=== PATIENT | male | born 1975 | race Caucasian/White ===

== ENCOUNTER 2018-11-20 20:24 | Observation (INO) | payer OTHER ==
--- NOTE | 2018-11-20 21:19 | C.PDOC ---
History Of Present Illness Patient presents to the ED c/o chest pain and SOB that has been on and off for the past 3 days. 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 Patient saw his PMD today and was sent to the ED for evaluation. Patient also c/o mild dizziness. Patient denies fever, chills, headache, visual changes, rash, palpitations, recent travel, sick contacts. Time Seen by Provider: 11/20/18 21:19 Chief Complaint (Nursing): Chest Pain History Per: Patient History/Exam Limitations: no limitations Onset/Duration Of Symptoms: Days (3), Intermittent Episodes Current Symptoms Are (Timing): Still Present Quality: "Pain" Recent travel outside of the [place]: No Additional History Per: Patient Past Medical History Reviewed: Historical Data, Nursing Documentation, Vital Signs Vital Signs: Last Vital Signs Temp 98.9 F 11/20/18 20:35 Pulse 65 11/20/18 20:35 Resp 20 11/20/18 20:35 BP 112/78 11/20/18 20:35 Pulse Ox 99 11/20/18 20:35 Primary Care Provider: Non [facility] Provider, - Medical History PMH: No Chronic Diseases Surgical History: No Surg Hx Family History: States: Unknown Family Hx - Social History Hx Alcohol Use: Yes Hx Substance Use: No - Immunization History Hx Tetanus Toxoid Vaccination: No Hx Influenza Vaccination: No Hx Pneumococcal Vaccination: No Review Of Systems Constitutional: Negative for: Fever, Chills Eyes: Negative for: Vision Change Cardiovascular: Positive for: Chest Pain. Negative for: Palpitations Respiratory: Positive for: Shortness of Breath. Negative for: Cough Gastrointestinal: Negative for: Nausea, Vomiting, Abdominal Pain Skin: Negative for: Rash Neurological: Positive for: Dizziness. Negative for: Weakness, Headache Physical Exam - Physical Exam Appears: Non-toxic, No Acute Distress Skin: Warm, Dry Head: Normacephalic Eye(s): bilateral: Normal Inspection, PERRL, EOMI Neck: Supple Chest: Symmetrical Cardiovascular: Rhythm Regular Respiratory: No Rales, Rhonchi (scattered at the bases), No Wheezing Gastrointestinal/Abdominal: Soft, No Tenderness, No Distention Extremity: Bilateral: Atraumatic, Normal Color And Temperature, Normal ROM Neurological/Psych: Oriented x3, Normal Speech, Normal Cognition, Other (no nystagmus) Gait: Steady Other Neurological Findings: Facial Palsy (left side since 2013, not new) ED Course And Treatment - Laboratory Results Result Diagrams: 11/20/18 22:02 11/20/18 21:32 ECG: Interpreted By Me, Viewed By Me ECG Rhythm: Sinus Rhythm (68), Nonspecific Changes O2 Sat by Pulse Oximetry: 99 (ON RA) Pulse Ox Interpretation: Normal - Radiology CXR: Interpreted by Me, Viewed By Me Progress Note: Plan: - CTA head. - EKG. - LAbs. - CXR. - Aspirin 325 mg PO Disposition Discussed With Dr.: Juan Pena Comment: acepted the pt on his service and took over the care at Doctor Will See Patient In The: Hospital Counseled Patient/Family Regarding: Studies Performed, Diagnosis - Disposition Disposition: HOSPITALIZED Disposition Time: 21:19 Condition: FAIR - Clinical Impression Clinical Impression: Chest pain - Scribe Statement The provider has reviewed the documentation as recorded by the Scribe Grady Smalls All medical record entries made by the Scribe were at my direction and personally dictated by me. I have reviewed the chart and agree that the record accurately reflects my personal performance of the history, physical exam, medical decision making, and the department course for this patient. I have also personally directed, reviewed, and agree with the discharge instructions and disposition. Decision To Admit - Pt Status Changed To: Hospital Disposition Of: Observation - . Bed Request Type: Telemetry Admitting Physician: Juan Pena Patient Diagnosis: Chest pain
[2018-11-20] MEDS ORDERED: Aspirin 325 mg EC Tablets PO STA (21:20)
[2018-11-20] MEDS ORDERED: Aspirin 325 mg EC Tablets PO ONE (21:37)
[2018-11-20 21:47] LABS: INR 1.3; PROTHROMBIN TIME 13.8 SECONDS (9.7-12.2)
[2018-11-20 21:51] LABS: ALB/GLOB RATIO 1.3 (1.0-2.1); ALBUMIN 4.7 g/dL (3.5-5.0); ALT/SGPT 44 U/L (21-72); AST/SGOT 28 U/L (17-59); BLOOD UREA NITROGEN 14 mg/dL (9-20); CALCIUM 10.1 mg/dl (8.6-10.4); GFR NON-AFRICAN AMERICAN > 60; LIPASE 163 U/L (23-300)
[2018-11-20 22:04] LABS: B-TYPE NATRIURETIC PEPTIDE < 11.1 pg/mL (0-450)
[2018-11-20 22:07] LABS: BASO # 0.1 K/uL (0.0-0.2); BASO % 0.9 % (0.0-2.0); EOS # 0.2 K/uL (0.0-0.7); EOS % 2.2 % (0.0-4.0); HEMOGLOBIN 16.7 g/dL (12.0-18.0); LYMPH # 2.3 K/uL (1.0-4.3); MEAN CORPUSCULAR HEMOGLOBIN 27.3 pg (27.0-31.0); MEAN CORPUSCULAR HGB CONC 34.1 g/dL (33.0-37.0); MEAN PLATELET VOLUME 9.4 fL (7.2-11.7); MONO # 0.5 K/uL (0.0-0.8); MONO % 5.8 % (0.0-10.0); NEUT # 5.6 K/uL (1.8-7.0); NEUT % 65.1 % (50.0-75.0); NRBC % 0.3 % (0.0-2.0); RBC 6.12 Mil/uL (4.40-5.90); RED CELL DISTRIBUTION WIDTH 14.4 % (11.5-14.5); WHITE BLOOD COUNT 8.7 K/uL (4.8-10.8)
[2018-11-20] MEDS ORDERED: Iodixanol 320 MG/ML 100 ML BOTTLE IV ONE (22:20)
[2018-11-21 07:41] LABS: HDL CHOLESTEROL 37 mg/dL (30-70)
--- NOTE | 2018-11-21 07:49 | CT ---
CT chest pulmonary angiogram HISTORY: Shortness of breath. COMPARISON: None. Technique: CT chest pulmonary angiogram was performed utilizing multiple contiguous axial images with use of intravenous contrast. Subsequently, sagittal and coronal reformatted images were obtained. Sagittal and coronal MIPS reformatted images were obtained. This CT exam was performed using one or more of the following dose reduction techniques: Automated exposure control, adjustment of the mA and/or kV according to patient size, and/or use of iterative reconstruction technique. Findings: No evidence of acute pulmonary embolism. No evidence of acute aortic dissection. Prominence of the main pulmonary artery measuring 3.6 centimeters which may indicate some pulmonary arterial hypertension. Clinical correlation. Right lung: Mild atelectasis at the right lung base. Left lung: Minimal lingular atelectasis. Trachea thru central airways are patent. No significant axillary adenopathy. Heterogeneous thyroid. 1 centimeter left paratracheal lymph node. No significant hilar adenopathy. No pleural or pericardial effusion. Prominent liver with fatty infiltration. Small hiatal hernia. Degenerative changes in the spine. Impression: 1. No evidence of acute pulmonary embolism. 2. Prominence of the main pulmonary artery which may indicate underlying pulmonary arterial hypertension. Clinical correlation. 3. Prominent liver with fatty infiltration. A preliminary report was generated at 11:54 p.m. on 11/20/[address] Shawn Jackson from [employer]
[2018-11-21 07:53] LABS: CK-MB < 0.22 ng/mL (0.0-3.38)
[2018-11-21 08:15] LABS: LDL CHOLESTEROL 175 mg/dL (0-129)
--- NOTE | 2018-11-21 08:23 | RAD ---
Chest x-ray single frontal view HISTORY: Chest pain. Comparison: None available. Findings: Mild venous congestion. Right hilar prominence. Heart size within normal limits. Impression: Mild venous congestion. Right hilar prominence.
[2018-11-21] MEDS ORDERED: Potassium Chloride 20 mEq ER Tab PO ONE (10:00)
[2018-11-21 14:27] LABS: CK-MB < 0.22 ng/mL (0.0-3.38)
[2018-11-21 16:55] VITALS: RESP 20
--- NOTE | 2018-11-21 17:08 | CP.PCM.HP ---
Present on Admission - Present on Admission Any Indicators Present on Admission: No Past Patient History - Past Social History Smoking Status: Former Smoker - NEUROLOGICAL Other/Comment: bells palsy - PSYCHIATRIC Hx Substance Use: No Meds Allergies/Adverse Reactions: Allergies Allergy/AdvReac Type Severity Reaction Status Date / Time No Known Allergies Allergy Unverified 11/20/18 20:41 Results - Vital Signs Recent Vital Signs: Last Vital Signs Temp 97.9 F 11/21/18 16:54 Pulse 86 11/21/18 16:54 Resp 20 11/21/18 16:54 BP 111/73 11/21/18 16:54 Pulse Ox 99 11/21/18 16:54 - Labs Result Diagrams: 11/20/18 22:02 11/20/18 21:32 Labs: Laboratory Results - last 24 hr 11/20/18 11/20/18 11/20/18 21:32 21:32 21:41 WBC RBC Hgb Hct MCV MCH MCHC RDW Plt Count MPV Neut % (Auto) Lymph % (Auto) Burt % (Auto) Eos % (Auto) Baso % (Auto) Neut # (Auto) Lymph # (Auto) Burt # (Auto) Eos # (Auto) Baso # (Auto) PT 13.8 H INR 1.3 APTT 36.0 H D-Dimer, Quantitative < 200 Sodium 139 Potassium 3.5 L Chloride 100 Carbon Dioxide 25 Anion Gap 18 BUN 14 Creatinine 1.0 Est GFR ( Amer) > 60 Est GFR (Non-Af Amer) > 60 POC Glucose (mg/dL) Random Glucose 114 H Calcium 10.1 Total Bilirubin 1.5 H AST 28 ALT 44 Alkaline Phosphatase 105 Total Creatine Kinase CK-MB (Mass) Troponin I < 0.0120 NT-Pro-B Natriuret Pep < 11.1 Total Protein 8.1 Albumin 4.7 Globulin 3.5 Albumin/Globulin Ratio 1.3 Triglycerides Cholesterol LDL Cholesterol Direct HDL Cholesterol Lipase 163 11/20/18 11/21/18 11/21/18 22:02 07:16 11:38 WBC 8.7 RBC 6.12 H Hgb 16.7 Hct 49.0 MCV 80.0 MCH 27.3 MCHC 34.1 RDW 14.4 Plt Count 223 MPV 9.4 Neut % (Auto) 65.1 Lymph % (Auto) 26.0 Burt % (Auto) 5.8 Eos % (Auto) 2.2 Baso % (Auto) 0.9 Neut # (Auto) 5.6 Lymph # (Auto) 2.3 Burt # (Auto) 0.5 Eos # (Auto) 0.2 Baso # (Auto) 0.1 PT INR APTT D-Dimer, Quantitative Sodium Potassium Chloride Carbon Dioxide Anion Gap BUN Creatinine Est GFR ( Amer) Est GFR (Non-Af Amer) POC Glucose (mg/dL) 200 H Random Glucose Calcium Total Bilirubin AST ALT Alkaline Phosphatase Total Creatine Kinase 84 CK-MB (Mass) < 0.22 Troponin I < 0.0120 NT-Pro-B Natriuret Pep Total Protein Albumin Globulin Albumin/Globulin Ratio Triglycerides 289 H Cholesterol 228 H LDL Cholesterol Direct 175 H HDL Cholesterol 37 Lipase 11/21/18 13:55 WBC RBC Hgb Hct MCV MCH MCHC RDW Plt Count MPV Neut % (Auto) Lymph % (Auto) Burt % (Auto) Eos % (Auto) Baso % (Auto) Neut # (Auto) Lymph # (Auto) Burt # (Auto) Eos # (Auto) Baso # (Auto) PT INR APTT D-Dimer, Quantitative Sodium Potassium Chloride Carbon Dioxide Anion Gap BUN Creatinine Est GFR ( Amer) Est GFR (Non-Af Amer) POC Glucose (mg/dL) Random Glucose Calcium Total Bilirubin AST ALT Alkaline Phosphatase Total Creatine Kinase 95 CK-MB (Mass) < 0.22 Troponin I < 0.0120 NT-Pro-B Natriuret Pep Total Protein Albumin Globulin Albumin/Globulin Ratio Triglycerides Cholesterol LDL Cholesterol Direct HDL Cholesterol Lipase
--- NOTE | 2018-11-22 06:01 | HP ---
CHIEF COMPLAINT: Chest pain. HISTORY OF PRESENT ILLNESS: This is a 43-year-old French male with history of obesity, hyperlipidemia with borderline sugar, not a known diabetic, a nonsmoker. 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 Along with that, he had dizziness. He denies any diaphoresis. No cough. No sore throat. No runny nose. He denies any history of dyspepsia, nausea, vomiting. He denies any history of polyuria, polydipsia, polyphagia. He denies any history of hematuria or pyuria. He denies any history of sneezing, itchy eyes, itchy nose. There is no history of trauma, fall, loss of consciousness. There is no history of seizures. There is no history of tingling, numbness, paresthesias. There is no history of sneezing. There is no history of joint pain or hip pain. ALLERGIES: UNKNOWN. CURRENT MEDICATIONS: The patient is not on any medication. PAST MEDICAL HISTORY: Obesity, hyperlipidemia. PHYSICAL EXAMINATION: GENERAL: A middle-aged male in no acute distress. VITAL SIGNS: Blood pressure 111/73, pulse 86, respiratory rate 20, temperature 97.9. SKIN: No rashes, no bruises, no purpura. HEENT: Atraumatic, normocephalic. Negative pallor. Negative jaundice. Extraocular movements are intact. NECK: Supple. No JVD. No lymph node. No thyromegaly. No carotid bruits. CHEST WALL: Bilateral symmetrical expansion. LUNGS: Clear. CARDIOVASCULAR SYSTEM: S1 and S2. Regular. No heave. No thrill. ABDOMEN: Soft, nontender. Bowel sounds are positive. RECTAL: No masses, no bleed. EXTREMITIES: No clubbing, cyanosis, or edema. CENTRAL NERVOUS SYSTEM: Awake, alert, and oriented x3. Cranial nerves II through XII are normal. Power 5/5 x4. Plantars are downgoing. ASSESSMENT: 1. Chest pain, rule out myocardial infarction. 2. Hyperlipidemia. PLAN: Admit. Detailed orders are written. The patient . Juan Pena MD
--- NOTE | 2018-11-22 06:15 | CON ---
DATE: 11/21/2018 HISTORY OF PRESENT ILLNESS: The patient is a 43-year-old [place] male, who recently arrived from [place] this past May from the [facility], has a history of hypertension, on an antihypertensive agent from [place], has not seen a doctor yet, presented because of chest pain that he as annoying feeling. Denies any diaphoresis or shortness of breath. The patient is known to have history of hyperlipidemia, but is not taking any antihyperlipidemic agent. SOCIAL HISTORY: The patient is a nonsmoker. MEDICATIONS: Current medications are Crestor 5 mg at bedtime, aspirin 81 mg once a day, subcutaneous heparin 5000 units every 8 hours. REVIEW OF SYSTEMS: No nausea or vomiting. No fever or chills. PAST MEDICAL HISTORY: Hypertension, hyperlipidemia. PHYSICAL EXAMINATION: GENERAL: The patient is a middle-aged male, who does not appear to be in any distress. VITAL SIGNS: Blood pressure 97/60, heart rate 69, temperature 97.7, and respirations 18. HEENT: Head normocephalic. NECK: No JVD. CHEST: Clear. HEART: S1 and S2 regular. ABDOMEN: Soft. EXTREMITIES: No edema and no calf tenderness. LABORATORY DATA: Sodium 139, potassium 3.5, chloride 100, CO2 of 25, glucose 114, BUN 14, and creatinine 1. Lipid profile; triglycerides 289, total cholesterol 128, LDL cholesterol 175, elevated. Lipase level is within normal limits. INR is 1.3. PTT is 36. D-Dimer is within normal limits. CBC: WBC is 8.7, hemoglobin is 16.7, hematocrit , platelet count 123,000. EKG revealed normal sinus rhythm at the rate of 68. Two sets of troponins are negative. CT angio of the chest, no evidence of pulmonary embolus. Prominence of the main pulmonary artery, which may include underlying pulmonary hypertension, clinical correlation, prominent liver with fatty infiltration. ASSESSMENT: 1. Chest pain, myocardial infarction is ruled out. 2. Hypertension. 3. Hyperlipidemia. 4. Hypokalemia. 5. Questionable pulmonary hypertension. 6. Fatty liver. RECOMMENDATIONS: Continue Crestor 5 mg once a day, aspirin 81 mg once a day. The patient did receive potassium chloride replacement of 20 mEq orally today. I would review echocardiographic study performed today. Follow up BMP in the a.m. The patient was scheduled for Myoview stress test in a.. Eze Holt MD
--- NOTE | 2018-11-22 06:17 | CP.PCM.PN ---
Subjective - Date & Time of Evaluation Date of Evaluation: 11/22/18 Time of Evaluation: 05:20 - Subjective Subjective: dict Objective - Vital Signs/Intake and Output Vital Signs (last 24 hours): Temp Pulse Resp BP Pulse Ox 99 F 77 20 122/83 99 11/21/18 23:20 11/21/18 23:20 11/21/18 23:20 11/21/18 23:20 11/22/18 04:00 - Medications Medications: Current Medications Aspirin (Ecotrin) 81 mg PO DAILY [facility] Last Admin: 11/21/18 09:46 Dose: 81 mg Heparin Sodium (Porcine) (Heparin) 5,000 units SC Q8 [facility] Last Admin: 11/22/18 05:08 Dose: Not Given Rosuvastatin Calcium (Crestor) 5 mg PO HS [facility] Last Admin: 11/21/18 21:26 Dose: 5 mg - Labs Labs: 11/20/18 22:02 11/20/18 21:32 PT 13.8 SECONDS (9.7-12.2) H 11/20/18 21:32 INR 1.3 11/20/18 21:32 APTT 36.0 SECONDS (21-34) H 11/20/18 21:32
[2018-11-22 08:03] LABS: CK-MB < 0.22 ng/mL (0.0-3.38)
[2018-11-22 08:30] VITALS: TEMP 97.8; O2SAT 100
--- NOTE | 2018-11-22 10:11 | PN ---
DATE: 11/22/2018 SUBJECTIVE: The patient is off stress test today. He is afebrile. No chest pain. Cardiac enzymes x3 are negative. PHYSICAL EXAMINATION: VITAL SIGNS: Blood pressure 122/83, pulse 77, respiratory rate 20, temperature 99. LUNGS: Clear. CARDIOVASCULAR SYSTEM: S1 and S2. Regular. ABDOMEN: Soft. ASSESSMENT: Chest pain, rule out myocardial infarction. PLAN: Stress test. Monitor patient. Juan Pena MD
[2018-11-22 13:17] LABS: BLOOD UREA NITROGEN 12 mg/dL (9-20); CALCIUM 9.4 mg/dl (8.6-10.4); GFR NON-AFRICAN AMERICAN > 60
[2018-11-22 15:44] VITALS: BP 106/70; PULSE 89
--- NOTE | 2018-11-22 15:44 | PN ---
DATE: 11/22/2018 SUBJECTIVE: The patient denies chest pain. No reported ventricular arrhythmia. PHYSICAL EXAMINATION: VITAL SIGNS: Blood pressure 117/78, heart rate 74, temperature 97.8, respirations 20. HEENT: Normocephalic. NECK: No JVD. CHEST: Clear. HEART: Sounds are regular. EXTREMITIES: No edema. LABORATORY DATA: A total 4 sets of troponins are negative. The patient underwent Myoview stress test. The treadmill part was negative for ischemia and the Myoview images have not been acquired so far. ASSESSMENT: 1. Chest pain, myocardial infarction is ruled out. 2. Hyperlipidemia. 3. Obesity. 4. Hypertension. 5. Hypokalemia. RECOMMENDATIONS: Continue Crestor 5 mg once a day, aspirin 81 mg once a day, heparin 5000 units every 8 hours. Obtain a followup BMP today and I will follow the Myoview imaging when it is completed this afternoon. Eze Holt MD
--- NOTE | 2018-11-22 16:01 | CARD ---
APPROVED REPORT Date of service: 11/22/2018 Protocol: TYRA Test Type: NUCLEAR STRESS Test Indications: CHEST PAIN Medical History: CHEST PAIN Target HR: 179 bpm Resting ECG: normal Resting Heart Rate: 84 bpm Resting Blood Pressure: 132/80mmHg submaximum (85%): 152 bpm TEST SUMMARY PRETESTWARM-UP18:[id number]/80.0. EXERCISESTAGE 103:[id number]/80.0. EXERCISESTAGE 203:[id number]/80.0. EXERCISESTAGE 300:[id number]/80.0. [id number]/80.0. POST EXERCISE Reason for Termination: Target heart rate achieved Target HR: No Max HR: 169 bpm 94% of Maximum Predicted HR: 179 bpm Exercise duration: 06:31 min:sec, 3 Stage Exercise capacity: 8.5METs Max Blood Pressure: 150/80mmHg Blood Pressure response to exercise: normal resting BP - appropriate response Heart Rate response to exercise: appropriate Chest Pain: No, none Angina index: 0 Arrhythmia: No, none ST Change: No, none Deviation: 0 mm EXAM: Myocardial Perfusion REST/STRESS Imaging Protocol The imaging protocol used to acquire images was Rest Tc-99m/stress Tc-99m 1 day Rest Spect myocardial perfusion imaging was performed in supine position 45 minutes following the injection of 10.8 mCi of Tc-99 Myoview. Gated Stress Spect was performed 45 minutes after intravenous 30.5 mCi Tc-99 Myoview injection. The images were gated to evaluate regional wall motion and calculate ventricular ejection fraction.Images were reconstructed using backfilter projection method in short horizontal and verticle long axis. Spect slices were generated. RESTING DATA EDV64.58kuMF9.40L/min ESV17.00mlMyocardial Jpik055.00g Av. Heart Rate73.00bpm EF73.00% STRESS DATA EDV60.11bnJR6.60L/min ESV10.00mlMyocardial Mass99.00g EF83.00% Regional WT score at stress:0.00 Regional WM score at stress:0.00 Summed WT score at stress:1.00 Av. Heart Rate72.00bpmSummed WM score at stress:0.00 LV Perfusion 1 The rest and stress images show normal perfusion. LV Perf. Quant 17 Seg. SSS0.00 17 Seg. SRS0.00 17 Seg. SDS0.00 Stress Defect Extent (% LAD)0.00Rest Defect Extent (% LAD)0.00Rev. Defect Extent (% LAD)0.00 Stress Defect Extent (% LCX)0.00Rest Defect Extent (% LCX)0.00Rev. Defect Extent (% LCX)0.00 Stress Defect Extent (% RCA)0.00Rest Defect Extent (% RCA)0.00Rev. Defect Extent (% RCA)0.00 Stress Defect Extent (% KAUSHIK)0.00Rest Defect Extent (% KAUSHIK)0.00Rev. Defect Extent (% KAUSHIK)0.00 Other Information Quality:Fair Overall Exercise Capacity: Average IMPRESSION Global LV Function: Normal Stress Test Summary: Normal LV Perfusion Summary: Normal Conclusion 1. The stress and resting images show normal perfusion.
--- NOTE | 2018-11-22 18:38 | CARD ---
APPROVED REPORT Date of service: 11/21/2018 EXAM: Two-dimensional and M-mode echocardiogram with Doppler and color Doppler. Other Information Quality : GoodRhythm : INDICATION Chest Pain 2D DIMENSIONS IVSd0.9 (0.7-1.1cm)LVDd4.3 (3.9-5.9cm) PWd1.0 (0.7-1.1cm)LA Egtosq19 (18-58mL) LVDs3.0 (2.5-4.0cm)FS (%) 29.1 % LVEF (%)58.0 (>50%)LVEF (Clements's)61.42 % M-Mode DIMENSIONS Left Atrium (MM)3.69 (2.5-4.0cm)IVSd0.93 (0.7-1.1cm) Aortic Root3.21 (2.2-3.7cm)LVDd4.59 (4.0-5.6cm) Aortic Cusp Exc.2.19 (1.5-2.0cm)PWd0.77 (0.7-1.1cm) FS (%) 35 %LVDs2.99 (2.0-3.8cm) LVEF (%)64 (>50%) Mitral Valve MV E Aktuhkgh79.4cm/sMV A Vxikgjvr46.6cm/sE/A ratio1.1 TDI Lateral E' Peak V9.26cm/sMedial E' Peak V6.67cm/sE/Lateral E'8.7 E/Medial E'12.1 LEFT VENTRICLE The left ventricle is normal size. There is normal left ventricular wall thickness. Left ventricle systolic function is normal. The Ejection Fraction is 60-65%. There is normal LV segmental wall motion. The left ventricular diastolic function is normal. No left ventricle thrombus noted on this study. RIGHT VENTRICLE The right ventricle is normal size. The right ventricular systolic function is normal. ATRIA The left atrium size is normal. The right atrium size is normal. AORTIC VALVE The aortic valve is mildly thickened. The aortic valve is trileaflet. No aortic regurgitation is present. There is no aortic valvular stenosis. There is no aortic valvular vegetation. MITRAL VALVE The mitral valve is normal in structure. There is no evidence of mitral valve prolapse. There is no mitral valve stenosis. There is no mitral valve regurgitation noted. TRICUSPID VALVE The tricuspid valve is normal in structure. There is no tricuspid valve regurgitation noted. There is no tricuspid valve prolapse or vegetation. There is no tricuspid valve stenosis. PULMONIC VALVE The pulmonary valve is normal in structure. There is no pulmonic valvular regurgitation. There is no pulmonic valvular stenosis. GREAT VESSELS The aortic root is normal in size. The IVC is normal in size and collapses >50% with inspiration. PERICARDIAL EFFUSION There is no pericardial effusion. There is no pleural effusion. <Conclusion> The left ventricle is normal size. Left ventricle systolic function is normal. The Ejection Fraction is 60-65%. The left ventricular diastolic function is normal. The right ventricle is normal size. The right ventricular systolic function is normal. The left atrium size is normal. The right atrium size is normal. Normal valves. This is an essentially normal M-mode, 2D and doppler echocardiogram.
== END 2018-11-22 17:55 | disposition home or self-care (01) ==
LOC: C.ER 20:24 → C.5S 11-21 00:30
PROVIDERS: ADMIT Internal Medicine; ATTEND Internal Medicine
DX: R07.9 Chest pain, unspecified (principal); E78.5 Hyperlipidemia, unspecified; I10 Essential (primary) hypertension; E66.9 Obesity, unspecified; Z87.891 Personal history of nicotine dependence; E87.6 Hypokalemia; K76.0 Fatty (change of) liver, not elsewhere classified
CPT/HCPCS: 36415; 71045; 71275; 78452; 80048; 80053; 80061; 82948; 83690; 83880; 84484; 85025; 85378; 85610; 85730; 93017; 93306; 99284; A9502; G0378; J1644; Q9967